=== PATIENT | male | born 1995 | race Caucasian/White ===

== ENCOUNTER → 2017-01-03 08:31 | Emergency (ER) | payer OTHER ==
[~2017-01-03 08:31] MED LIST: Glucagon* 1 MG VIAL IV ONE; Meperidine SYRINGE* 50 MG/ML ONE; Midazolam* 1 MG/ML 10 ML VIAL (10 MG) ONE; NS 0.9% 1000 ML* 1,000 ML IV ONE
--- NOTE | 2017-01-03 15:04 | CONS ---
CONSULTATION REPORT: DATE OF CONSULT: 01/03/17 - EMERGENCY DEPT REQUESTING PHYSICIAN: Dr. Irene. INDICATION: Esophageal foreign body. NARRATIVE: This is a pleasant 21-year-old male, who has a history of asthma and a history of dysphagia for many years. He states that last night around 6: 00 p.m., he was eating steak and it became stuck. He usually is able to dislodge it on his own by vomiting; however, he continued to try to vomit through the night and by this morning at 8:00 a.m. was unable to dislodge it on his own, so he presented to the emergency room. He was given Glucagon with no relief of his symptoms. He continues to have slight chest discomfort. He is spitting up the saliva. He denies any history of GERD. Rare nonsteroidals. No family history of esophageal issues. He does have a history of asthma. PAST MEDICAL HISTORY: Significant for ADD. PAST SURGICAL HISTORY: No surgeries. MEDICATIONS: Include Adderall. ALLERGIES: He has no known drug allergies. FAMILY HISTORY: No esophageal malignancies in the family. REVIEW OF SYSTEMS: Twelve systems are reviewed other than mentioned in the HPI were unremarkable. PHYSICAL EXAM: Temperature is 97.8, blood pressure is 126/65, pulse is 74, O2 sat of 96%. General: Well-appearing, young man, in no apparent distress. Alert , oriented, pleasant, and fluent. HEENT: Mucous membranes are moist without lesions, ulcers, or exudates. Neck is supple. Trachea is midline. Head is normocephalic, atraumatic. Heart: Regular rate and rhythm. No murmurs, rubs, or gallops. Lungs: Clear to auscultation bilaterally. No wheezes, rales, or rhonchi. Skin is warm and dry. LABORATORY DATA: None. ASSESSMENT AND PLAN: This is a pleasant 21-year-old gentleman with esophageal foreign body. He likely has eosinophilic esophagitis given his age and his asthma history. He does need an EGD here in the emergency room. I will make arrangements for it here very shortly. He is just here visiting in [place] and will return to [place] with followup with GI out there. [id number]/[facility] #: [id number] [facility]
[2017-01-03 16:33] VITALS: BP 109/61
--- NOTE | 2017-01-03 17:47 | ED ---
Manjit Perez Rebecca, scribed for Serg Irene MD on 01/03/17 at 0912 . Throat Pain/Nasal Congestion - HPI Summary HPI Summary: Pt is a 21 y/o M who presents to ED c/o FB sensation in the throat. Reports he was eating steak last night at 1800 and he felt it "get stuck in my throat." Attempted to drink water to alleviate sx, which was unsuccessful. Is currently not in any pain. Cannot tolerate PO intake. Denies any SOB. Prior similar episodes during which he could induce vomiting which would alleviate sx, however he is unable to dislodge the FB. Has never needed to be evaluated by a GI before. - History of Current Complaint Chief Complaint: EDForeignBodyEsophag Time Seen by Provider: 01/03/17 08:45 Hx Obtained From: Patient Onset/Duration: Still Present Associated Signs And Symptoms: Positive: FB Sensation - Allergies/Home Medications Allergies/Adverse Reactions: Allergies Allergy/AdvReac Type Severity Reaction Status Date / Time No Known Allergies Allergy Verified 01/03/17 09:24 PMH/Surg Hx/FS Hx/Imm Hx Endocrine/Hematology History: Denies: Hx Diabetes Cardiovascular History: Denies: Hx Hypertension Respiratory History: Reports: Hx Asthma Infectious Disease History: No Infectious Disease History: Denies: Traveled Outside the [place] in Last 30 Days - Family History Known Family History: Positive: Cardiac Disease, Hypertension, Diabetes - Social History Occupation: Student Alcohol Use: None Substance Use Type: Reports: None Smoking Status (MU): Never Smoked Tobacco Review of Systems Positive: Other - FB sensation in the throat without pain; Unable to tolerate PO intake Negative: Shortness Of Breath All Other Systems Reviewed And Are Negative: Yes Physical Exam - Summary Physical Exam Summary: General: well-appearing, no pain distress Skin: warm, skin color reflects adequate perfusion, dry Head: normal Eyes: EOMI, DAVID ENT: normal, posterior pharynx open Neck: supple, nontender Respiratory: CTA, breath sounds present Cardiovascular: RRR Abdomen: soft, nontender Bowel: present Musculoskeletal: normal, strength/ROM intact Neuro: normal, sensory/motor intact, A&O x3 Psych: affect/mood appropriate Triage Information Reviewed: Yes Vital Signs On Initial Exam: Initial Vitals Temp Pulse Resp BP Pulse Ox 97.8 F 78 16 129/81 98 01/03/17 08:35 01/03/17 08:35 01/03/17 08:35 01/03/17 08:35 01/03/17 08:35 Vital Signs Reviewed: Yes Diagnostics - Vital Signs Vital Signs Temp Pulse Resp BP Pulse Ox 01/03/17 08:35 97.8 F 78 16 129/81 98 - Laboratory Lab Statement: Any lab studies that have been ordered have been reviewed, and results considered in the medical decision making process. Re-Evaluation - Re-Evaluation First Eval Re-Evaluation Time: 10:44 Change: Unchanged Comment: Given glucagon 1 hour ago and tried to drink some sips of water. He is still spitting up and cannot swallow. EENT Course/Dx - Course Course Of Treatment: NO CRITICAL CARE TIME. GI, DR GRAY, PERFORMED EGD IN ED AND REMOVED THE FB. DISCHARGE HOME STABLE. - Diagnoses Provider Diagnoses: Esophageal foreign body - Provider Notifications Discussed Care Of Patient With: Dionte Gray Time Discussed With Above Provider: 09:30 Instructed by Provider To: Other - Advised administration of Glucagon and 1 hour later a reevaluation. Discussed care of pt with Dr. Gray again at 1046 who will evaluate pt in the ED. Discharge - Discharge Plan Condition: Stable Disposition: HOME Patient Education Materials: Esophageal Foreign Body (ED), Esophageal Stricture (ED) Referrals: [facility] [Provider Group] Dionte Gray MD [Medical Doctor] - Non Staff,Doctor [Primary Care Provider] - Additional Instructions: FOLLOW UP WITH YOUR DOCTOR. RETURN TO THE EMERGENCY DEPARTMENT FOR ANY WORSENING OF YOUR CONDITION OR QUESTIONS OR CONCERNS. The documentation as recorded by the Manjit alvarado Rebecca accurately reflects the service I personally performed and the decisions made by me, Serg Irene MD.
--- NOTE | 2017-01-04 00:22 | PRO ---
DATE OF PROCEDURE: 01/03/17 - EMERGENCY DEPT PROCEDURE: EGD with foreign body removal. INDICATION: Esophageal foreign body. MEDICATIONS GIVEN: 100 mg IV Demerol, 14 mg IV Versed. PROCEDURE IN DETAIL: After the EGD procedure including the risks, benefits, and alternatives not limited to perforation, surgery and/or were explained to the patient, written consent was then obtained, IV medication was given and a bite block was placed between the teeth. An Olympus gastroscope was then inserted into the patient's mouth, advanced down the esophagus, and at approximately 26 cm from the incisors, there was a large meat bolus. I used the Santoyo net biopsy forceps and cold snare to remove bits and pieces of the meat bolus. I did have to pass the scope at least a dozen times with removal of large chunks each time. Eventually I was able to shave down the meat bolus small enough that it advanced distally into the esophagus and then into the stomach. The patient does have changes throughout the entirety of the esophagus consistent with eosinophilic esophagitis. The stomach was entered. No abnormalities were seen except for the large meat bolus that had passed through. Retroflexion maneuver was unremarkable. Scope was advanced through a widely patent pylorus into the duodenal bulb, into the distal duodenum, both of which were unremarkable. The scope was withdrawn into the esophagus where a biopsy was obtained to confirm eosinophilic esophagitis. The scope was then withdrawn from the patient. He tolerated the procedure well and was returned to the care of the ED staff in stable condition. IMPRESSION: 1. Complete upper endoscopy into the distal duodenum with esophageal foreign body removal and biopsy. 2. Esophageal foreign body, status post removal using Santoyo net snare and biopsy forceps. 3. Biopsy to evaluate for eosinophilic esophagitis. 4. Total time of the procedure was greater than 45 minutes. 5. I will call in [facility] for him. He is in [place] right now visiting and traveling back to [place] in the next few days. I had extensive discussions with his parents both pre and post procedure. He also needs to follow up with the refrigeration specialist once he gets back to [place]. [id number]/[facility] #: [id number] JEREMIAS
== END | disposition home or self-care (01) ==
LOC: ED 08:31
DX: T18.128A Food in esophagus causing other injury, initial encounter (principal); X58.XXXA Exposure to other specified factors, initial encounter; Y93.89 Activity, other specified; Y92.9 Unspecified place or not applicable
CPT/HCPCS: 88305; 96374; 99285; J1610; J2250